=== PATIENT | male | born 1960 | race Caucasian/White ===

== ENCOUNTER → 2019-12-15 | Outpatient (CLI) | payer OTHER ==
--- NOTE | 2019-12-15 09:16 | CT ---
EXAMINATION TYPE: CT abdomen pelvis wo con DATE OF EXAM: 12/15/2019 HISTORY: Ventral hernia. History of kidney stones. Mid abdominal pain for [address] DLP: 383.6 mGycm. Automated Exposure Control for Dose Reduction was Utilized. TECHNIQUE: CT scan of the abdomen and pelvis is performed without oral or IV contrast. COMPARISON: NONE FINDINGS: Within the limitations of a non-contrast study, the following observations are made. LUNG BASES: Mild linear scarring and/or atelectasis in the lingula. LIVER/GB: No significant abnormality is appreciated. PANCREAS: No significant abnormality is seen. SPLEEN: No significant abnormality is seen. ADRENALS: No significant abnormality is seen. KIDNEYS: There are 2 adjacent right renal calculi measuring up to 5 mm in size axial image 52 mediall y upper mid pole level. There is 5 mm nonobstructing calculus left kidney axial image 47 upper pole l evel. No hydronephrosis or obstructing ureteral calculi bilaterally. No intraluminal calculi and poor ly distended bladder. BOWEL: No suspicious small or large bowel dilatation. Normal appearing appendix medially from cecum n ear axial image 85. GENITAL ORGANS: Prostate gland is thought normal in size. Occasional scattered pelvic phleboliths. LYMPH NODES: No greater than 1cm abdominal or pelvic lymph nodes are appreciated. OSSEOUS STRUCTURES: Mild to moderate axial joint space loss in both hips. Some facet arthropathy lowe r lumbar spine. OTHER: Small fat-containing periumbilical hernia axial image 75. IMPRESSION: Nonobstructing bilateral renal calculi without hydronephrosis or obstructing ureteral ayanna culi. Small fat-containing left periumbilical hernia. No bowel obstruction or suspicious acute findin gs otherwise.
== END | disposition home or self-care (01) ==
LOC: RADCTMAIN 08:41
PROVIDERS: ATTEND Family Medicine
DX: N20.0 Calculus of kidney (principal); K42.9 Umbilical hernia without obstruction or gangrene
CPT/HCPCS: 74176

== ENCOUNTER → 2020-04-27 | Outpatient (CLI) | payer OTHER | END | disposition home or self-care (01) | LOC: LABPAT 10:05 | PROVIDERS: ATTEND Surgery | DX: Z01.818 Encounter for other preprocedural examination (principal); K43.0 Incisional hernia with obstruction, without gangrene | CPT/HCPCS: 36415; 86850; 86900; 86901; 93005 ==

== ENCOUNTER 2020-05-05 09:16 | Day surgery (SDC) | payer OTHER ==
[2020-04-28 14:07] VITALS: BMI 22.5
[~2020-05-05 09:16] MED LIST: ACETAMINOPHEN TAB 500 MG TAB PO ONE; DEXAMETHASONE SOD PHOSPHATE 10 MG/ML 1 ML VIAL IV ONE; HEPARIN SODIUM,PORCINE 5,000 UNIT/ML 1 ML VIAL SQ ONE; LACTATED RINGERS 1,000 ML IV SCH; LIDOCAINE 1% (10MG/ML) FOR IV START INTRADERMA PRN; MIDAZOLAM 2 MG/2 ML VIAL IV PRN; fentaNYL (PF) 50 MCG/ML 2 ML AMP IVP PRN
[2020-05-05] MEDS ORDERED: ONDANSETRON 4 MG/2 ML VIAL ONE (10:45)
[2020-05-05 11:05] LABS: Glucose,Whole Blood 106 mg/dL (75-99)
[2020-05-05] MEDS ORDERED: fentaNYL (PF) 50 MCG/ML 2 ML AMP IV ONE ×2 (11:43→11:52)
[2020-05-05] MEDS ORDERED: MIDAZOLAM 2 MG/2 ML VIAL IV ONE ×2 (11:43→11:51)
[2020-05-05] MEDS ORDERED: SCOPOLAMINE 1.5MG/72HR PATCH TRANSDERM ONE (11:46)
--- NOTE | 2020-05-05 11:51 | P.GSHP ---
History of Present Illness H&P Date: 05/05/20 Chief Complaint: Incisional hernia This 59-year-old male who presents today for laparoscopic robotic system repair of incisional hernia. Patient has a hernia located above the umbilicus. Past Medical History Past Medical History: Diabetes Mellitus, Hypertension, Skin Disorder Additional Past Medical History / Comment(s): psoriasis. hx migraines. kidney stones. hx tachycardia History of Any Multi-Drug Resistant Organisms: None Reported Past Surgical History: No Surgical Hx Reported Past Anesthesia/Blood Transfusion Reactions: Motion Sickness Additional Past Anesthesia/Blood Transfusion Reaction / Comment(s): has never had anesthesia Smoking Status: Former smoker - Past Family History Father Family Medical History: Cancer Mother Family Medical History: Cancer Sister(s) Family Medical History: Cancer Additional Family Medical History / Comment(s): Medications and Allergies Home Medications Medication Instructions Recorded Confirmed Type Clobetasol Propionate [Temovate 1 applic TOPICAL BID 04/28/20 05/05/20 History 0.05% Cream] Losartan [Cozaar] 50 mg PO DAILY 04/28/20 05/05/20 History Semaglutide [Ozempic] 0.25 mg SQ FR 04/28/20 05/05/20 History metFORMIN HCL [Glucophage] 1,000 mg PO BID 04/28/20 05/05/20 History traZODone HCL 50 mg PO HS 04/28/20 05/05/20 History Allergies Allergy/AdvReac Type Severity Reaction Status Date / Time No Known Allergies Allergy Verified 05/05/20 10:39 Surgical - Exam Vital Signs Temp Pulse Resp BP Pulse Ox 98.7 F 105 H 16 162/84 99 05/05/20 10:51 05/05/20 10:51 05/05/20 10:51 05/05/20 10:51 05/05/20 10:51 - General well developed, well nourished, no distress - Eyes PERRL - ENT normal pinna - Neck no masses - Respiratory normal expansion - Cardiovascular Rhythm: regular - Abdomen Hernia: incisional (4 cm incisional hernia located above the umbilicus) Results - Labs Abnormal Lab Results - Last 24 Hours (Table) 05/05/20 Range/Units 11:02 POC Glucose (mg/dL) 106 H (75-99) mg/dL Assessment and Plan Assessment: Incisional hernia. We'll perform laparoscopic robotic-assisted repair.
[2020-05-05 11:55] LABS: Basophils # (A) 0.1 k/uL (0-0.2); Basophils % (A) 1 %; Eosinophils % (A) 0 %; HCT 44.4 % (39.0-53.0); HGB 14.7 gm/dL (13.0-17.5); Lymphocytes # (A) 1.4 k/uL (1.0-4.8); Lymphocytes % (A) 29 %; MCH 32.6 pg (25.0-35.0); MCHC 33.1 g/dL (31.0-37.0); MCV 98.6 fL (80.0-100.0); Mean Platelet Volume 7.8; Monocytes # (A) 0.3 k/uL (0-1.0); Monocytes % (A) 5 %; Neutrophils # (A) 3.1 k/uL (1.3-7.7); Neutrophils % (A) 62 %; Platelet Count 263 k/uL (150-450); RBC 4.51 m/uL (4.30-5.90); RDW 12.8 % (11.5-15.5); WBC 4.9 k/uL (3.8-10.6)
[2020-05-05] MEDS ORDERED: ROCURONIUM 10 MG/ML (10 ML VIAL) IV ONE (12:46)
[2020-05-05] MEDS ORDERED: GLYCOPYRROLATE 0.2 MG/ML 2 ML VIAL ONE (12:46)
[2020-05-05] MEDS ORDERED: NEOSTIGMINE 1 MG/ML 10 ML VIAL ONE (12:46)
[2020-05-05] MEDS ORDERED: SUCCINYLCHOLINE CHLORIDE 100 MG/5 ML SYR IV ONE (12:46)
[2020-05-05] MEDS ORDERED: ROPIVACAINE 5 MG/ML 30 ML VIAL ONE (12:46)
[2020-05-05] MEDS ORDERED: fentaNYL (PF) 50 MCG/ML 2 ML AMP ONE (12:46)
[2020-05-05] MEDS ORDERED: KETOROLAC 15 MG/ML 1 ML VIAL ONE (12:46)
[2020-05-05] MEDS ORDERED: PHENYLEPHRINE-0.9% NACL SYG 1 MG/10 ML SYRINGE ONE (12:46)
[2020-05-05] MEDS ORDERED: HYDROmorphone (PF) 1 MG/ML ONE (12:46)
[2020-05-05] MEDS ORDERED: LIDOCAINE 1% INJ 10MG/ML (20 ML MDV) ONE (12:46)
[2020-05-05] MEDS ORDERED: MIDAZOLAM 2 MG/2 ML VIAL ONE (12:46)
[2020-05-05] MEDS ORDERED: PROPOFOL 10 MG/ML 20 ML VIAL IV ONE (12:46)
[2020-05-05] MEDS ORDERED: BUPIVACAINE (PF) 0.5% 30 ML VIAL SQ ONE (13:01)
--- NOTE | 2020-05-05 13:52 | P.OP ---
Date of Procedure: 05/05/20 Preoperative Diagnosis: Ventral hernia Postoperative Diagnosis: Ventral hernia Procedure(s) Performed: Laparoscopic robotic Ventral hernia Anesthesia: ALEXANDR Surgeon: Azeem Campbell Pathology: other (Omentum) Condition: stable Disposition: PACU Description of Procedure: The patient was placed on the operating table in the supine position. He received general anesthesia. His abdomen was prepped and draped usual fashion. Using a 5 mm optical trocar under direct visualization the peritoneal cavity was entered in the left upper quadrant. The abdomen was then insufflated. The laparoscope was placed back into the perineal cavity. Next a 8 mm robotic trocar was placed in the left lower quadrant and a 12 mm robotic trocar was placed in the left lateral position. The original 5 mm trocar was exchanged for a 8 mm robotic trocar. The patient's placed in the left side up position. And the patient was docked to the robot. The incisional hernia was visualized. Using hook cautery the peritoneum over the ventral hernia was excised. The fascial opening was repaired using 0V LOC suture. Next a piece of 11 cm round ventral light ST mesh was placed into the. Cavity and secured with 2 OV lock suture. The patient was undocked the robot. The needles were retrieved. The fascia of the 12 mm trocar site was closed with 0 Ethibond suture. Skin was closed interrupted 3-0 Monocryl suture. Dermabond dressings was applied. Patient tolerated procedure well and was sent to recovery room stable condition.
[2020-05-05 14:09] VITALS: TEMP 98
[2020-05-05] MEDS ORDERED: HYDROmorphone 0.5 MG/0.5 ML SYRINGE IVP ONE ×2 (14:25→14:35)
[2020-05-05 14:44] LABS: Glucose,Whole Blood 134 mg/dL (75-99)
[2020-05-05 14:54] VITALS: RESP 16
[2020-05-05 15:45] VITALS: PULSE 100
[2020-05-05 17:15] VITALS: BP 150/88
== END 2020-05-05 16:25 | disposition home or self-care (01) ==
LOC: OR 09:16
PROVIDERS: ATTEND Surgery
DX: K43.2 Incisional hernia without obstruction or gangrene (principal); I10 Essential (primary) hypertension; E11.9 Type 2 diabetes mellitus without complications; G43.909 Migraine, unspecified, not intractable, without status migrainosus; L40.9 Psoriasis, unspecified; Z87.891 Personal history of nicotine dependence; Z79.84 Long term (current) use of oral hypoglycemic drugs; Z79.899 Other long term (current) drug therapy; Z87.442 Personal history of urinary calculi; Z80.9 Family history of malignant neoplasm, unspecified
CPT/HCPCS: 64488; 86900; 86901; 85025; 86850; 88302; 36415; 49654; C1781; J2250; J1644; J1100; J2710; J0690; J2405; J2001; J3010; J1170 ×2; J2795; J1885; J2370; J0330; J2704

== ENCOUNTER → 2022-02-20 | Outpatient (CLI) | payer OTHER ==
--- NOTE | 2022-02-20 10:02 | CT ---
EXAMINATION TYPE: CT abdomen pelvis wo con CT DLP: 845 mGycm, Automated exposure control for dose reduction was used. DATE OF EXAM: 02/20/2022 9:30 AM COMPARISON: CT abdomen pelvis most recent from 02/20/2022. CLINICAL INDICATION:Male, 61 years old with history of R10.31 Right lower quadrant pain; TECHNIQUE: Standard CT of the abdomen and pelvis without IV or oral contrast. Lack of IV or oral co ntrast limits evaluation of solid and hollow organ viscera. Coronal and sagittal reformats were perfo rmed. FINDINGS: LOWER CHEST: Unremarkable ABDOMEN LIVER: Unremarkable noncontrast appearance. GALLBLADDER AND BILE DUCTS: Unremarkable. PANCREAS: Unremarkable noncontrast appearance. SPLEEN: Unremarkable noncontrast appearance. ADRENAL GLANDS: Unremarkable noncontrast appearance. KIDNEYS AND URETERS: No hydronephrosis. Previously demonstrated left superior pole 5 mL calculus is n o longer visualized. No calculi demonstrated within both ureters. Stable right upper pole 6 mm calcul us. New right lower pole 4 mm nonobstructive calculus. PELVIS BLADDER: Incompletely distended but grossly unremarkable. REPRODUCTIVE: Not enlarged prostate gland. Calcification of the vas deferens bilaterally which is typ ically seen with diabetics. ABDOMEN & PELVIS STOMACH AND BOWEL: Stomach and duodenum are unremarkable. Scattered colonic diverticulosis without ev idence for acute diverticulitis. The appendix is within normal limits. No evidence of bowel obstructi on. PERITONEUM: No evidence of pneumoperitoneum or free fluid. VASCULATURE: No evidence of aortic aneurysm. Pelvic phleboliths. MUSCULOSKELETAL: No acute osseous abnormalities. Increased sclerosis of the bilateral SI joints redem onstrated. This is most prominent involving the bilateral iliac bones. LYMPH NODES: No gross evidence for lymphadenopathy. SOFT TISSUE/ABDOMINAL WALL: Tiny fat-containing periumbilical hernia. IMPRESSION: 1. No acute abdominal/pelvic process. 2. No evidence of obstructive uropathy. Previously demonstrated left superior pole 5 mm calculus is n o longer visualized and likely has passed. Stable right upper pole 6 mm nonobstructing calculus with new right lower pole 4 mm nonobstructing calculus. 3. Stable tiny fat-containing periumbilical hernia.
== END | disposition home or self-care (01) ==
LOC: RADCTMAIN 09:12
PROVIDERS: ATTEND Family Medicine
DX: N20.0 Calculus of kidney (principal); K42.9 Umbilical hernia without obstruction or gangrene
CPT/HCPCS: 74176

== ENCOUNTER 2024-06-09 07:29 | Day surgery (SDC) | payer BC, OTHER ==
[2024-06-06 11:23] VITALS: BMI 27.3
[~2024-06-09 07:29] MED LIST changes: -ACETAMINOPHEN TAB 500 MG TAB PO ONE; -DEXAMETHASONE SOD PHOSPHATE 10 MG/ML 1 ML VIAL IV ONE; -HEPARIN SODIUM,PORCINE 5,000 UNIT/ML 1 ML VIAL SQ ONE; -LACTATED RINGERS 1,000 ML IV SCH; -MIDAZOLAM 2 MG/2 ML VIAL IV PRN; -fentaNYL (PF) 50 MCG/ML 2 ML AMP IVP PRN
[2024-06-09 08:06] VITALS: TEMP 97.9
[2024-06-09 08:12] LABS: Glucose,Whole Blood 130 mg/dL (70-110)
[2024-06-09] MEDS: LACTATED RINGERS 1,000 ML IV SCH (08:13)
[2024-06-09] MEDS: IV FLUID CONTINUATION 1,000 ML IV ONE (08:13)
[2024-06-09] MEDS: ONDANSETRON 4 MG/2 ML VIAL IVP STA (08:14)
[2024-06-09] MEDS: MIDAZOLAM 2 MG/2 ML VIAL IV ONE (08:15)
[2024-06-09] MEDS ORDERED: PROPOFOL 10 MG/ML 20 ML VIAL IV ONE (08:34)
--- NOTE | 2024-06-09 08:44 | P.GSHP ---
History of Present Illness H&P Date: 06/09/24 Chief Complaint: Positive Cologuard test Is a 63-year-old male presents today for colonoscopy patient has positive Cologuard test. Past Medical History Past Medical History: Diabetes Mellitus, Hypertension, Skin Disorder Additional Past Medical History / Comment(s): positive cologuard, psoriasis,hernia. hx migraines. kidney stones. hx tachycardia History of Any Multi-Drug Resistant Organisms: None Reported Past Surgical History: Hernia Repair Additional Past Surgical History / Comment(s): robotic ventral hernia repair Past Anesthesia/Blood Transfusion Reactions: No Reported Reaction, Motion Sickness Additional Past Anesthesia/Blood Transfusion Reaction / Comment(s): no hx blood transfusion Smoking Status: Former smoker - Past Family History Mother Family Medical History: Cancer Additional Family Medical History / Comment(s): colorectal CA-alive Sister(s) Family Medical History: Cancer Additional Family Medical History / Comment(s): ovarian CA Father Additional Family Medical History / Comment(s): Alzheimer Medications and Allergies Home Medications Medication Instructions Recorded Confirmed Type Losartan [Cozaar] 100 mg PO QAM 04/28/20 06/09/24 History metFORMIN HCL [Glucophage] 1,000 mg PO BID 04/28/20 06/09/24 History Amitriptyline HCl [Elavil] 25 mg PO HS 06/06/24 06/09/24 History Multivitamins, Thera [Multivitamin 1 tab PO DAILY 06/06/24 06/09/24 History (formulary)] Triamcinolone Acetonide 1 applic TOPICAL BID PRN 06/06/24 06/09/24 History [Triamcinolone Acetonide 0.1% Lotion] Allergies Allergy/AdvReac Type Severity Reaction Status Date / Time No Known Allergies Allergy Verified 06/09/24 07:54 Surgical - Exam Vital Signs Temp Pulse Resp BP Pulse Ox 97.9 F 114 H 16 175/100 100 06/09/24 07:56 06/09/24 07:56 06/09/24 07:56 06/09/24 07:56 06/09/24 07:56 - General well developed, well nourished, no distress - Eyes PERRL - ENT normal pinna - Neck no masses - Respiratory normal expansion - Cardiovascular Rhythm: regular - Abdomen Abdomen: soft, non tender Results - Labs Abnormal Lab Results - Last 24 Hours (Table) 06/09/24 Range/Units 08:10 POC Glucose (mg/dL) 130 H (70-110) mg/dL Assessment and Plan Assessment: Positive Cologuard test. Will perform colonoscopy.
--- NOTE | 2024-06-09 09:05 | P.OP ---
Date of Procedure: 06/09/24 Preoperative Diagnosis: Positive Cologuard test Postoperative Diagnosis: Diverticulosis Procedure(s) Performed: Colonoscopy Anesthesia: MAC Surgeon: Azeem Campbell Pathology: none sent Condition: stable Disposition: PACU Description of Procedure: The patient is placed on the back table lateral position. He received IV sedation. Digital rectal exams performed. This revealed no abnormality. The flexible colonoscope was then placed patient anus passed throughout the entire colon. The ileocecal valve was visualized. The cecum appeared normal. The ascending colon appeared normal. The transverse colon appeared normal. The descending sigmoid colon there is mild diverticular changes. The scope was brought back to the rectum this appeared normal. Scope withdrawn for the patient.
[2024-06-09 09:19] VITALS: BP 108/72; PULSE 95; RESP 16
== END 2024-06-09 09:38 | disposition home or self-care (01) ==
LOC: ORWHC2ENDO 07:29
PROVIDERS: ATTEND Surgery
DX: R19.5 Other fecal abnormalities (principal); K57.30 Diverticulosis of large intestine without perforation or abscess without bleeding; I10 Essential (primary) hypertension; E11.9 Type 2 diabetes mellitus without complications; G43.909 Migraine, unspecified, not intractable, without status migrainosus; L40.9 Psoriasis, unspecified; K21.9 Gastro-esophageal reflux disease without esophagitis; Z80.0 Family history of malignant neoplasm of digestive organs; Z79.899 Other long term (current) drug therapy; Z79.84 Long term (current) use of oral hypoglycemic drugs; Z87.442 Personal history of urinary calculi; Z98.890 Other specified postprocedural states; Z87.891 Personal history of nicotine dependence
CPT/HCPCS: 45378; J2250; J2405; J2704